=== PATIENT | female | born 1960 | race American Indian/Alaskan Native ===

== ENCOUNTER 2018-09-11 13:14 | Emergency (ER) | payer OTHER ==
[2018-09-11 13:28] VITALS: BP 153/83
--- NOTE | 2018-09-11 13:50 | Emergency Department Report ---
ED General Adult HPI - General Chief complaint: Chest Pain Stated complaint: TIGHT CHEST/BLUR VISION Time Seen by Provider: 09/11/18 13:44 Source: patient Mode of arrival: Ambulatory Limitations: No Limitations - History of Present Illness Initial comments: She has a very pleasant 57-year-old -Al[place] female who comes to the ER today complaining of a two-week history of fluttering in her chest. She states that she gets the fluttering several times a day not in relation to any one event or activity. It is associated with a fullness in her neck, chest tightness, and shortness of breath. She denies swelling of her lower legs. She does have a past medical history of hyperthyroidism that was partially treated. She states that her medicine at that time was stopped because it was not working. She has seen her primary care physician Dr. Olivares about 2 weeks ago for the same. They did not seem to think this was anything to be alarmed about and gave her no follow-up instructions. Mother is alive and well. Father of prostate cancer. Her medications include losartan and hydrochlorothiazide. -: week(s) Associated Symptoms: chest pain, shortness of breath, other (fullness in neck and ringing ears) - Related Data Allergies Allergy/AdvReac Type Severity Reaction Status Date / Time iodine Allergy Swelling Verified 09/11/18 13:24 ED Review of Systems ROS: Stated complaint: TIGHT CHEST/BLUR VISION Other details as noted in HPI Comment: All other systems reviewed and negative Constitutional: denies: chills, fever Eyes: denies: eye pain ENT: as per HPI, ear pain (ear ringing), other (fullness in neck) Respiratory: see HPI, shortness of breath (with fluttering) Cardiovascular: as per HPI, chest pain (with flutering), palpitations, other (fluttering in chest) Endocrine: see HPI, other (hx hyperthyroidism; no recent weight loss) Gastrointestinal: denies: nausea Genitourinary: denies: dysuria Musculoskeletal: denies: back pain Skin: denies: rash Neurological: denies: weakness Psychiatric: denies: depression Hematological/Lymphatic: denies: easy bleeding ED Past Medical Hx - Past Medical History Hx Hypertension: Yes Additional medical history: hyperthyroidism- years ago and partially treated - Surgical History Additional Surgical History: rt hip, rt knee - Family History Family history: other (father dec ca) - Social History Smoking Status: Never Smoker Substance Use Type: None ED Physical Exam - General Limitations: No Limitations General appearance: alert - Head Head exam: Present: atraumatic - Eye Eye exam: Present: normal appearance, PERRL Pupils: Present: normal accommodation - ENT ENT exam: Present: mucous membranes moist - Neck Neck exam: Present: normal inspection - Respiratory Respiratory exam: Present: normal lung sounds bilaterally, respiratory distress - Cardiovascular Cardiovascular Exam: Present: regular rate, normal rhythm - GI/Abdominal GI/Abdominal exam: Present: soft, normal bowel sounds - Rectal Rectal exam: Present: deferred - Extremities Exam Extremities exam: Present: normal inspection, full ROM - Back Exam Back exam: Present: normal inspection, full ROM - Neurological Exam Neurological exam: Present: alert, oriented X3, normal gait - Psychiatric Psychiatric exam: Present: normal affect, normal mood - Skin Skin exam: Present: warm, dry, intact ED Course Vital Signs 09/11/18 09/11/18 13:24 13:39 Temperature 98.8 F Pulse Rate 68 Respiratory 18 16 Rate Blood Pressure 153/83 O2 Sat by Pulse 99 Oximetry - Reevaluation(s) Reevaluation #1: 09/11/18 14:59 DISCUSSED FINDINGS WITH 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 12 lead noted labs noted Labs 09/11/18 09/11/18 14:00 14:00 WBC 7.1 RBC 4.79 Hgb 13.8 Hct 41.6 MCV 87 MCH 29 MCHC 33 RDW 14.2 Plt Count 312 Sodium 142 Potassium 3.6 Chloride 100.5 Carbon Dioxide 29 Anion Gap 16 BUN 10 Creatinine 0.9 Estimated GFR > 60 BUN/Creatinine Ratio 11 Glucose 104 H Calcium 9.2 tsh normal will dc home with cardiology follow up for holter monitor Labs 09/11/18 09/11/18 09/11/18 14:00 14:00 14:00 WBC 7.1 RBC 4.79 Hgb 13.8 Hct 41.6 MCV 87 MCH 29 MCHC 33 RDW 14.2 Plt Count 312 Sodium 142 Potassium 3.6 Chloride 100.5 Carbon Dioxide 29 Anion Gap 16 BUN 10 Creatinine 0.9 Estimated GFR > 60 BUN/Creatinine Ratio 11 Glucose 104 H Calcium 9.2 TSH 1.420 Urine Color Urine Turbidity Urine pH Ur Specific [place] Urine Protein Urine Glucose (UA) Urine Ketones Urine Blood Urine Nitrite Urine Bilirubin Urine Urobilinogen Ur Leukocyte Esterase Urine WBC (Auto) Urine RBC (Auto) U Epithel Cells (Auto) 09/11/18 14:22 WBC RBC Hgb Hct MCV MCH MCHC RDW Plt Count Sodium Potassium Chloride Carbon Dioxide Anion Gap BUN Creatinine Estimated GFR BUN/Creatinine Ratio Glucose Calcium TSH Urine Color Straw Urine Turbidity Clear Urine pH 7.0 Ur Specific [place] 1.002 L Urine Protein <15 mg/dl Urine Glucose (UA) Neg Urine Ketones Neg Urine Blood Sm Urine Nitrite Neg Urine Bilirubin Neg Urine Urobilinogen < 2.0 Ur Leukocyte Esterase Neg Urine WBC (Auto) < 1.0 Urine RBC (Auto) 1.0 U Epithel Cells (Auto) < 1.0 - Differential Diagnosis ro electolyte derangement; ro hyperthyroidism Critical care attestation.: If time is entered above; I have spent that time in minutes in the direct care of this critically ill patient, excluding procedure time. ED Disposition Clinical Impression: Palpitation Disposition: -01 TO HOME OR SELFCARE Is pt being admited?: No Does the pt Need Aspirin: No Condition: Stable Instructions: Palpitations (ED) Additional Instructions: hydrate well with water meds per routine diet as tolerated activity as tolerated FOLLOW UP WITH [facility] [employer] FOR [facility]IT[facility] Referrals: STEFANIE CARRASCO MD [Primary Care Provider] - 3-5 Days LASHAE DE LA O MD [Staff Physician] - 3-5 Days Time of Disposition: 14:52
[2018-09-11 14:11] LABS: Hematocrit 41.6 % (30.3-42.9); Hemoglobin 13.8 gm/dl (10.1-14.3); Mean Corpuscular HGB Conc 33 % (30-34); Mean Corpuscular Volume 87 fl (79-97); Platelet Count 312 K/mm3 (140-440); Red Blood Count 4.79 M/mm3 (3.65-5.03); Red Cell Distribution Width 14.2 % (13.2-15.2)
[2018-09-11 14:26] LABS: BUN/Creatinine Ratio 11; Blood Urea Nitrogen 10 mg/dL (7-17); Calcium 9.2 mg/dL (8.4-10.2); Hemolysis Index 5
[2018-09-11 14:40] LABS: Bilirubin,Urine NEG (Negative); Blood,Urine SM (Negative); Color,Urine Straw (Yellow); Protein,Urine <15 mg/dL mg/dL (Negative); Urobilinogen,Urine < 2.0 mg/dL (<2.0); WBC,Urine < 1.0 /HPF (0.0-6.0)
== END 2018-09-11 14:58 | disposition home or self-care (01) ==
LOC: ED 13:14
DX: R00.2 Palpitations (principal); I10 Essential (primary) hypertension; E05.90 Thyrotoxicosis, unspecified without thyrotoxic crisis or storm
CPT/HCPCS: 36415; 80048; 81001; 84443; 85027; 93005; 93010